=== PATIENT | female | born 1950 | race Caucasian/White ===

== ENCOUNTER 2017-02-06 07:07 | Day surgery (SDC) | payer MEDICARE ==
--- NOTE | 2017-02-05 13:02 | HP ---
DATE OF CLINIC: 01/31/2017 JAYDE HATCH : 1950 PLANNED PROCEDURE: Left Knee Arthroscopic Partial Medial Meniscectomy DATE OF SURGERY: February 06, 2017 SURGEON: Oscar Raymond M.D. HISTORY OF PRESENT ILLNESS Jayde Hatch is a 66 year old female. * Medication list reviewed with patient allergy list reviewed with patient. Patient has been referred to us by Jose Delgado PA-C, for further discussion of surgery for a left medial meniscus tear. Patient fell on compact snow and ice on October 25, 2016. Patient was sent for an MRI and the MRI showed a posterior horn left knee medial meniscus tear. Today patient reports some improvement overall, but continues to have some knee stiffness and discomfort. Patient reports that she fell on a hyperflexed left knee, striking the anterior left knee on the ground. After discussion and review of treatment options, both operative and non-operative, she has elected to proceed with surgery and presents today preoperatively. CURRENT MEDICATION * *DME Miscellaneous Walker to be used as needed, 99 days, 0 refills * Albuterol HFA 108 (90 Base) MCG/ACT Aerosol Solution as directed 0 days, 0 refills * AmLODIPine Besylate 10 MG Tablet 1 once a day 90 days, 0 refills * Levothyroxine Sodium 125 MCG Tablet 1 once a day 90 days, 0 refills PAST MEDICAL/SURGICAL HISTORY Reported: Medical: A history of cancer Colon, breast, Reported numbness, Reported tingling, history of Arthritis, and Thyroid Disorder. Surgical / Procedural: Prior surgery 6 foot [id number] Colon Cancer 1993 - [facility] breast cancer - right -03/2013 Breast reconstruction 10/2013 Right Eye surgery 02/2014, 06/2015, 09/14/2015, Appendectomy 1959, Caesarean Section 1971, 1973, Hemorrhoidectomy 1979, and Hernia repair 1993. Surgical: * Hysterectomy 1994 SOCIAL HISTORY Behavioral: Smoking status: Never smoker. Work: Occupation Retired. ALLERGIES * Amoxicillin Reaction: Nausea/Vomiting/Diarrhea * Aspirin Reaction: Nausea/Vomiting/Diarrhea * Cipro Reaction: Sensitivity * Codeine Reaction: Sensitive * Erythromycin Reaction: Nausea/Vomiting/Diarrhea * Motrin Reaction: Nausea/Vomiting/Diarrhea * Oxycodone Reaction: Nausea/Vomiting/Diarrhea * Penicillin Reaction: Nausea/Vomiting/Diarrhea * TraMADol HCl Reaction: Sensitivity * Vicodin Reaction: Sensitive FAMILY HISTORY Mother ill Stroke, osteoarthritis, rheumatoid arthritis 2 children living REVIEW OF SYSTEMS No recent constitutional symptoms to include fevers and chills. No cardiovascular symptoms to include chest pain or palpitations. No respiratory symptoms to include shortness of breath or recent infections. PHYSICAL FINDINGS * Vitals taken 01/31/2017 11:28 am BP-Sitting R 143/83 mmHg BP Cuff Size Regular Pulse Rate-Sitting 66 bpm Temp-Oral 98 F Height 63.25 in Weight 249 lbs Body Mass Index 43.8 kg/m2 Body Surface Area 2.13 m2 Pain Level 2 Ears, Nose, Throat: * ENT: normal. Lungs: * Clear to auscultation. Cardiovascular: Heart Rate and Rhythm: * Normal. Abdomen: * Normal. Neurological: Motor: * Dominant Hand = Right Hand. GENERAL: Patient is alert and oriented and in no acute distress. She ambulates in on her own, without an orthotic or walking aid. LEFT LOWER EXTREMITY / KNEE EXAM: No bruising or deformity. She is obese and it is hard to feel whether or not there is an effusion. I do not feel or see any signs of soft tissue swelling. Passive knee [id number] appears fully straight and flexion to approximately 100 degrees. Valgus and varus stress tests feel stable and non-tender. Aruna test feels stable, without laxity. Anterior and posterior drawer tests were difficult to perform on today's exam, because of leg flexion and positioning issues. Leah test was performed and is uncomfortable, but not necessarily painful. Her anterior knee, around the prepatellar and anterior fat pad, as well as anterior proximal tibia, soft tissue were uncomfortable with palpation. No crepitice on exam. Quadricep and hamstring strength is 5/5. Ankle dorsiflexion and plantar flexion strength is 5/5. IMAGING MRI of left knee dated 12/10/2016 was reviewed in the office with the patient. There appears to be a posterior horn meniscus tear that can be seen. Please refer to radiologic report for further details. ASSESSMENT * Sprained left knee * Internal derangement of posterior horn of medial meniscus of knee * Contusion with intact skin surface of the left anterior knee Left knee posterior medial meniscus tear, [id number] 10/25/2016, after a fall on the ice THERAPY * Patient fall risk screen positive. * Patient eligible for fall risk assessment. * Patient received fall risk assessment. PLAN * Oth meniscus derang, post horn of medial meniscus, l knee Dilaudid 4 MG TABS, 1 every 4 - 6 hours as needed, 30 days, 0 refills Zofran 4 MG TABS, 1 tablet every 6-8 hours as needed for nausea, 30 days, 0 refills * Knee Arthroscopy (Left) with PMM CARE TEAM Abraham Chen MD [facility] SURGICAL CONSENT We have discussed surgical options including left knee arthroscopic PMM and non-operative management. The patient was counseled in detail regarding the diagnosis, treatment options available, prognosis of each treatment option and the potential risks and complications. The risks of surgery include, but are not limited to, anesthetic , neurovascular complications, pulmonary embolism, deep vein thrombosis, wound dehiscence, failure of any or all of the discussed procedures, infection of the joint or surrounding soft tissue, need for revision surgery, chronic pain, limitations in activities of daily living, inability to return to work, and loss of normal range of motion or functional use of the extremity. There is the possibility of failure over time that may require additional operative or non-operative treatment. The patient acknowledged that there are a number of perioperative risks not mentioned here and would still like to proceed. The patient is aware of and understands these risks, and wishes to proceed with the proposed surgical procedure and other procedures as indicated at the time of surgery. We will have the patient see their PCP for a preoperative medical risk assessment. The preoperative instructions were reviewed with the patient and all questions were answered. PB/sg
[2017-02-06] MEDS ORDERED: CEFAZOLIN SODIUM 2 GRAM PREMIX 100 ML IV PRN (07:15)
[2017-02-06] MEDS ORDERED: FENTANYL 100 MCG/2 ML VIAL ONE (07:26)
[2017-02-06] MEDS ORDERED: MIDAZOLAM HCL 5 MG/5 ML VIAL ONE ×2 (07:26→08:29)
[2017-02-06] MEDS ORDERED: DEXAMETHASONE SOD PHOS 4 MG/1 ML VIAL ONE (07:26)
[2017-02-06] MEDS ORDERED: ROPIVACAINE 0.5% 30 ML VIAL ONE (07:26)
[2017-02-06] MEDS ORDERED: IV START KIT ONE (07:29)
[2017-02-06] MEDS ORDERED: CEFAZOLIN SODIUM 2 GRAM PREMIX 100 ML IV ONE (07:29)
[2017-02-06] MEDS ORDERED: LACTATED RINGERS 1,000 ML ONE (07:29)
[2017-02-06] MEDS ORDERED: ONDANSETRON 4 MG/2ML 2 ML VIAL ONE (07:58)
[2017-02-06] MEDS ORDERED: FAMOTIDINE 10 MG/ML 2ML VIAL ONE (07:58)
[2017-02-06] MEDS ORDERED: SCOPOLAMINE 1.5 MG/72 HR 1 EACH PATCH TD ONE (07:58)
[2017-02-06] MEDS ORDERED: NERVE BLOCK PROCEDURAL TRAY 1 EACH ONE (08:01)
[2017-02-06] MEDS ORDERED: SPINAL PROCEDURAL TRAY 1 EACH ONE (08:23)
[2017-02-06] MEDS ORDERED: PROMETHAZINE HCL 25 MG/ML VIAL IM PRN (08:50)
[2017-02-06] MEDS ORDERED: HYDROMORPHONE HCL 1 MG/ML SYRINGE IV PRN ×2 (08:50→10:12)
[2017-02-06] MEDS ORDERED: FENTANYL 100 MCG/2 ML VIAL IV PRN (08:50)
[2017-02-06] MEDS ORDERED: ON-Q PUMP/ROPIVACAINE 0.2% 450 ML in PREMIX BAG 1 EACH NB PRN (08:50)
[2017-02-06] MEDS ORDERED: PROPOFOL 20 ML IV ONE (08:57)
[2017-02-06] MEDS ORDERED: BUPIVACAINE 0.5% W/EPI SDV 30 ML VIAL ONE (08:57)
[2017-02-06] MEDS ORDERED: EPHEDRINE SULFATE UD SYR 25 MG 25 MG/5 ML SYRINGE IV ONE (08:58)
[2017-02-06] MEDS ORDERED: LACTATED RINGERS 1,000 ML IV SCH ×2 (09:00→10:12)
[2017-02-06] MEDS ORDERED: LIDOCAINE 2% (PRES FREE) 5 ML VIAL ONE (09:02)
--- NOTE | 2017-02-06 09:31 | PCMBPN ---
Brief Post Op Note: Date of Procedure: 02/06/17 Start Time: 0900 Preoperative Diagnosis: 1. left knee medial meniscus tear Postoperative Diagnosis: 1. Same 2. Left knee lateral mensicus tear (anterior horn) Procedure: left knee arthroscopy with partial medial and lateral meniscectomies Surgeon: Oscar Raymond MD Assist: Francisco Sullivan PA-C Anesthesia: Wanda Hobbs Findings: as above; mild medial and PF compartment degenerative changes Condition: stable to PACU Complications: none IV Fluids: 1000 mLs of LR Urine Output: 0 mLs Estimated Blood Loss: 5 mLs Tourniquet Time: 16 min at 250 mm Hg Specimens: none Implants: none Drains: none Oscar Raymond MD
[2017-02-06] MEDS ORDERED: ON-Q PUMP/ROPIVACAINE 0.2% 450 ML ONE (09:43)
[2017-02-06] MEDS ORDERED: HYDROMORPHONE HCL 4 MG TABLET PO PRN (10:12)
[2017-02-06] MEDS ORDERED: DIPHENHYDRAMINE HCL 50 MG/1 ML VIAL IV PRN (10:12)
[2017-02-06] MEDS ORDERED: ONDANSETRON 4 MG/2ML 2 ML VIAL IV PRN (10:12)
--- NOTE | 2017-02-07 14:19 | OP ---
Tahira HATCH : 1950 [id number] DATE OF PROCEDURE: February 06, 2017 PREOPERATIVE DIAGNOSIS: Left knee medial meniscus tear. POSTOPERATIVE DIAGNOSES: Left knee medial meniscus tear, left knee lateral meniscus tear. PROCEDURE PERFORMED: LEFT KNEE ARTHROSCOPY WITH PARTIAL MEDIAL AND LATERAL MENISCECTOMIES. SURGEON: Oscar Raymond M.D. CARE NAVIGATOR: Monroe Sullivan P.A.-C. ANESTHESIA: Kimberly OneillR.N.Connie. SPECIMENS: No material was sent to the laboratory. ESTIMATED BLOOD LOSS: 5 mL FLUIDS REPLACED: 1 L of crystalloid. TOURNIQUET TIME: 16 minutes at 300 mmHg. URINE OUTPUT: None. IMPLANTS: None. DRAINS: No drains. INDICATIONS: This is a 66-year-old female who complains of pain and mechanical symptoms in the right knee that have been increasing over time and have not responded to a course of nonoperative measures. Patient has an exam and imaging studies which are consistent with the above. Given failure to improve with nonoperative measures patient was consented for paste. The risks, benefits and alternatives were discussed at length with that patient and they elected to proceed with surgery. Informed consent was obtained and documented in the chart and the patient was placed on the schedule the first available convenience. DESCRIPTION OF PROCEDURE: The patient was identified in the preoperative holding area where they were marked with an indelible marker by the operating surgeon. Patient was taken to the operating room where they were placed in the supine position the operating room table. A general anesthesia was induced, perioperative antibiotics were administered and a well padded pre-calibrated nonsterile tourniquet was placed on the left upper thigh. Patient was prepped and draped in the usual sterile fashion for surgery. An operative time out was performed and confirmed by all members of the operative team confirming the patient identity, procedure to be performed and the laterally for that procedure. All necessary personnel, equipment and implants were in place and there were no safety concerns. The leg was elevated and exsanguinated using the Esmarch bandage and the tourniquet was inflated to 300 mmHg. A standard lateral portal was created and the 30 degree viewing arthroscope was inserted into the knee. Optics were directed anteromedially and a medial portal was localized and created in a standard fashion. A probe was inserted through this medial portal and used in completion of the diagnostic arthroscopy with the following findings: 1) The patient had extensive hypertrophy of the infrapatellar and suprapatellar fat pads. 2) The posterior horn of the medial meniscus had a tear extending from near the meniscal root around to about the junction of the posterior horn of the midbody. There was a central leaflet that was divided away and was somewhat macerated and irreparable. 3) The medial compartment showed grade 2 chondral changes. 4) ACL and PCL were intact. 5) Lateral compartment showed intact chondral surfaces. 6) Lateral meniscus had some fraying and a small tear on the anterior horn. 7) The patellofemoral joint showed grade 2 changes with extensive fibrillation of the chondral surfaces. After completion of diagnostic arthroscopy the probe was exchanged for an arthroscopic biter and this was used to resect back the medial meniscus to a stable rim. This was then exchanged for arthroscopic resector shaver which was used to complete the partial medial meniscectomy. The arthroscopic resector shaver was also used to perform a partial lateral meniscectomy of the anterior horn addressing the tear and the brain noted in this location. At this point we felt that we had addressed the patient's intra-articular pathology and so the camera and instruments were removed from the knee. The portal sites were closed with #4-0 Nylons; 20 mL of 0.5% Marcaine was injected into the knee for perioperative analgesia. A sterile dressing of Xeroform, fluffs, ABDs, web roll and then an LYNDSAY bandage from ankle to the thigh was applied. The tourniquet was deflated, the drapes were removed. The patient was awakened from anesthesia and extubated in the operating room without difficulty. Patient was transferred to a stretcher and taken postoperatively to the post anesthesia care unit in stable condition. There were no observed intraoperative complications during this procedure. Job [id number] Cc: [facility]
== END 2017-02-06 12:30 | disposition home or self-care (01) ==
LOC: SDC 07:07
PROVIDERS: ATTEND Orthopaedic Surgery
PROC: 0SBD4ZZ Excision of Left Knee Joint, Percutaneous Endoscopic Approach (ICD-10-PCS; principal; 2017-02-06)
PROC: 0SBD4ZZ Excision of Left Knee Joint, Percutaneous Endoscopic Approach (ICD-10-PCS; 2017-02-06)
DX: M23.222 Derangement of posterior horn of medial meniscus due to old tear or injury, left knee (principal); M23.242 Derangement of anterior horn of lateral meniscus due to old tear or injury, left knee; M17.12 Unilateral primary osteoarthritis, left knee; W00.0XXA Fall on same level due to ice and snow, initial encounter; E07.9 Disorder of thyroid, unspecified; Z88.0 Allergy status to penicillin; Z88.1 Allergy status to other antibiotic agents; Z88.6 Allergy status to analgesic agent; Z88.5 Allergy status to narcotic agent; Z88.8 Allergy status to other drugs, medicaments and biological substances
CPT/HCPCS: 29880; J3010; J1100; J2795 ×3; A9270; J2250 ×2; J2405; J7120; A4306; J0690